=== PATIENT | female | born 1995 | race Caucasian/White ===

== ENCOUNTER 2019-07-08 07:12 | Emergency (ER) | payer OTHER ==
[~2019-07-08] VITALS: Ht 177.8 cm; Wt 75.8 kg
[2019-07-08] MEDS ORDERED: KEFLEX500 M1 PO (12:41)
[2019-07-08 12:52] VITALS: BP 124/88
== END 2019-07-08 12:54 | disposition home or self-care (01) ==
LOC: ER 07:12
DX: S01.81XA Laceration without foreign body of other part of head, initial encounter (principal); Z88.8 Allergy status to other drugs, medicaments and biological substances; Z91.040 Latex allergy status; Z91.013 Allergy to seafood; W01.0XXA Fall on same level from slipping, tripping and stumbling without subsequent striking against object, initial encounter; Y93.89 Activity, other specified; Y92.89 Other specified places as the place of occurrence of the external cause; Y99.8 Other external cause status